=== PATIENT | male | born 1980 | race Caucasian/White ===

== ENCOUNTER 2017-09-12 14:39 | Emergency (ER) | payer BC, OTHER ==
[~2017-09-12] VITALS: Ht 182.9 cm; Wt 73.0 kg
[~2017-09-12 14:39] MED LIST: CLON2TAB PO; LAMI200T PO; NAPR500 PO; PRAZ2CAP PO; VENL75TA PO; ZIPR40 PO; ZONI50CA2 PO
[2017-09-12 14:52] VITALS: BP 142/78; PULSE 106; RESP 20; TEMP 98.7; O2SAT 97
[2017-09-12 15:45] LABS: AUTOMATED NEUTROPHIL # 6.1 TH/MM3 (1.8-7.7); BASOPHIL # 0.1 TH/MM3 (0-0.2); BASOPHIL % 0.9 % (0.0-2.0); HEMATOCRIT 45.9 % (39.0-51.0); HEMOGLOBIN 15.3 GM/DL (13.0-17.0); LYMPH % 22.4 % (9.0-44.0); LYMPHOCYTE # 1.9 TH/MM3 (1.0-4.8); MEAN CELL VOLUME 86.6 FL (80.0-100.0); MEAN CORPUSCULAR HEMOGLOBIN 28.8 PG (27.0-34.0); MEAN CORPUSCULAR HGB CONC 33.2 % (32.0-36.0); MEAN PLATELET VOLUME 7.8 FL (7.0-11.0); MONO % 5.8 % (0.0-8.0); MONOCYTE # 0.5 TH/MM3 (0-0.9); NEUT % 70.9 % (16.0-70.0); PLATELET COUNT 258 TH/MM3 (150-450); RED CELL DISTRIBUTION WIDTH 14.4 % (11.6-17.2); WHITE BLOOD COUNT 8.6 TH/MM3 (4.0-11.0)
[2017-09-12 16:13] LABS: ALKALINE PHOSPHATASE 71 U/L (45-117); ALT (GPT) 30 U/L (12-78); TOTAL BILIRUBIN ADULT 0.2 MG/DL (0.2-1.0); TOTAL PROTEIN 7.6 GM/DL (6.4-8.2)
[2017-09-12 16:14] LABS: AST (GOT) 20 U/L (15-37); BICARBONATE 27.2 MEQ/L (21.0-32.0); BLOOD UREA NITROGEN 12 MG/DL (7-18); CALCIUM 8.7 MG/DL (8.5-10.1); CHLORIDE 110 MEQ/L (98-107); CREATININE 1.14 MG/DL (0.60-1.30); GLOMERULAR FILTRATION RATE 74 ML/MIN (>89); GLUCOSE,RANDOM 87 MG/DL (74-106); SODIUM (NA) 145 MEQ/L (136-145)
[2017-09-12 16:15] LABS: ACETAMINOPHEN LESS THAN 2.0 MCG/ML (10.0-30.0)
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
[2017-09-12 17:47] VITALS: BP 132/74
== END 2017-09-12 18:01 ==
LOC: NEPD 14:39
DX: R45.851 Suicidal ideations (principal); G40.909 Epilepsy, unspecified, not intractable, without status epilepticus; F43.10 Post-traumatic stress disorder, unspecified; F31.9 Bipolar disorder, unspecified; F41.9 Anxiety disorder, unspecified; F32.9 Major depressive disorder, single episode, unspecified; Z86.69 Personal history of other diseases of the nervous system and sense organs; Z72.0 Tobacco use; Z79.899 Other long term (current) drug therapy
CPT/HCPCS: 80053; 80307; 84443; 85025; 99283

== ENCOUNTER 2017-09-18 14:58 | Emergency (ER) | payer BC, OTHER ==
[~2017-09-18] VITALS: Ht 182.9 cm; Wt 86.4 kg
[2017-09-18 15:06] VITALS: BP 146/84; PULSE 97; RESP 16; TEMP 99.1; O2SAT 100
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
== END 2017-09-18 16:44 | disposition home or self-care (01) ==
LOC: NEPK 14:58
DX: S60.221A Contusion of right hand, initial encounter (principal); Y08.89XA Assault by other specified means, initial encounter; F31.9 Bipolar disorder, unspecified; F43.10 Post-traumatic stress disorder, unspecified; Z72.0 Tobacco use; Z79.899 Other long term (current) drug therapy
CPT/HCPCS: 73130; 99283

== ENCOUNTER 2017-10-05 15:04 | Emergency (ER) | payer SELFPAY ==
[~2017-10-05] VITALS: Ht 182.9 cm; Wt 90.0 kg
[2017-10-05 15:09] VITALS: BP 131/69; PULSE 99; RESP 16; TEMP 98.1; O2SAT 99
[2017-10-05] MEDS ORDERED: KETOROLAC TROMETHAMINE 60 MG/2 ML (IM) VIAL IM ONE (15:30)
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
== END 2017-10-05 16:24 | disposition home or self-care (01) ==
LOC: NEPD 15:04
DX: S40.011A Contusion of right shoulder, initial encounter (principal); F31.9 Bipolar disorder, unspecified; F43.10 Post-traumatic stress disorder, unspecified; W17.89XA Other fall from one level to another, initial encounter; Z72.0 Tobacco use
CPT/HCPCS: 73000; 96372; 99283; J1885